=== PATIENT | male | born 1995 | race Caucasian/White ===

== ENCOUNTER 2016-11-17 15:53 | Emergency (ER) | payer SELFPAY ==
[2016-11-17] MEDS ORDERED: ONDANSETRON HCL 4 MG/2 ML VIAL ONE (16:13)
[2016-11-17 16:22] LABS: BASOPHILS 0.1 % (0.0-2.0); EOSINOPHILS 0.1 % (0.0-6.0); HEMOGLOBIN 13.9 g/dL (14.0-18.0); LYMPHOCYTES 14.7 % (20.0-40.0); LYMPHOCYTES# 1.7 X 10^3uL (0.8-3.8); MEAN CORPUS. HGB CONCENTRATION 34.7 g/dL (32.0-36.0); MEAN CORPUSCULAR HEMOGLOBIN 31.2 pg (29.0-35.0); MEAN PLATELET VOLUME 9.9 fL (7.4-10.4); MONOCYTES# 0.8 X 10^3uL (0.2-1.0); NEUTROPHILS 78.1 % (54.0-75.0); NEUTROPHILS# 8.8 X 10^3uL (2.6-6.7); PLATELET COUNT 171 X 10^3uL (130-440); RED BLOOD COUNT 4.45 X 10^6uL (4.20-6.10); RED CELL DISTRIBUTION WIDTH 12.3 % (11.5-14.5); WHITE BLOOD COUNT 11.3 X 10^3uL (3.9-10.7)
[2016-11-17 16:27] LABS: BLOOD UREA NITROGEN 16 mg/dL (9-20); CALCIUM 9.8 mg/dL (8.4-10.2); CHLORIDE 97 mmol/L (98-107); EST GLOMERULAR FILTRATION RATE > 60 mL/min; GLUCOSE 124 mg/dL (70-100); POTASSIUM 3.2 mmol/L (3.5-5.1); SODIUM 138 mmol/L (137-145)
[2016-11-17 16:30] LABS: ETHYL ALCOHOL < 10 mg/dL (<10)
--- NOTE | 2016-11-17 19:12 | ER NURSING DOCUMENTATION ---
Nurse's Notes [facility] Name:Yony Wells Age:21 yrs Sex:Male :1995 Arrival Date:11/17/2016 Time:15:53 Bed4 Private MD: Diagnosis:Heroin Abuse Presentation: 11/17 16:01 Presenting complaint: Patient states: pt states he feels fine. EMS states: EMS was st called for a pt who had nausea and passed out on the trail. pt states he has had injected heroin and smoked some THC about 5 hours ago. pt was d/angelia from a rehab facility yesterday. Transition of care: Other RMNP. 16:01 Acuity: IQRA 3 st 16:01 Method Of Arrival: EMS: 410 st 16:13 Care prior to arrival: IV initiated. Medication(s) given: Zofran. st Triage Assessment: 16:06 General: Appears drowsy but can carry on a normal conversation. . Behavior is st cooperative. General: pt has no complaints. . Pain: Denies pain. Cardiovascular: tachy. Rhythm is sinus tachycardia. Respiratory: Airway is patent Respiratory effort is even, unlabored, Respiratory pattern is regular, symmetrical, shallow and slow when sleeping. GI: Reports nausea, not curently. Historical: - Allergies: Focalin; - Home Meds: 1. None - PMHx: ADHD; - PSHx: None; - Tetanus: < 10 years. - Ebola Screening: : Patient denies exposure to infectious person. Patient denies travel to an Ebola-affected area in the 21 days before illness onset. . - Immunization history: Pneumococcal vaccine status is unknown. - Social history: Smoking status: Patient uses tobacco products, current every day smoker. Patient uses IV drugs, heroin, marijuana Patient/guardian denies using alcohol. Screenin:08 Infectious Disease Risk Other: pt denies any. Abuse screen: pt states he feels safe at home. Nutritional screening: No deficits noted. Assessment: 16:21 General: rangers at bedside talking to pt . st 17:05 General: pt is awake and talking to his friends. . st Vital Signs: 16:07 BP 126 / 91; Pulse 109; Resp 14; Temp 98.3; Pulse Ox 74% on R/A; Pain 0/10; st 16:25 Pulse 97 MON; Resp 15; Pulse Ox 100% 4 lpm ; st 16:36 BP 132 / 74 (auto/); st 16:40 Pulse 81 MON; Resp 8; Pulse Ox 97% 2 lpm ; st 17:00 BP 133 / 75 (auto/); st 17:05 Pulse 89 MON; Resp 12; Pulse Ox 97% ; st 17:11 Pulse Ox 84% on R/A; st 17:30 BP 119 / 69 (auto/); st 17:35 Pulse 87 MON; Resp 18; Pulse Ox 96% ; st 17:40 Pulse 82 MON; Resp 18; Pulse Ox 93% on 1 lpm NC; st 17:58 Pulse Ox 78% on R/A; st 18:00 BP 106 / 70 (auto/); st 18:05 Pulse 78 MON; Resp 19; Pulse Ox 100% on 1 lpm NC; st 18:30 BP 119 / 72 (auto/); st 18:35 Pulse 75 MON; Resp 17; Pulse Ox 94% on R/A; st 18:41 Pulse Ox 96% on R/A; st 19:10 Pulse Ox 97% on R/A; mk2 ED Course: 15:54 Patient arrived in ED. jt 16:01 summer, RN is Primary Nurse. st 16:[address] 16:09 Valuables Remains with patient Patient has correct armband on for positive st identification. Bed in low position. Call light in reach. Side rails up X2. pt with in sight of RN station. bus monitor on. Pulse ox on. NIBP on. Cardiac Monitoring On for Nurse Monitoring only. Pulse Ox - RN Monitoring Only NIBP On - RN Monitoring Only. 16:11 Oxygen Oxygen administration via nasal cannula @ 4L/min. st 16:21 Diaz Vela MD is Attending Physician. tl1 16:53 Oxygen Oxygen administration via nasal cannula @ 2L/min. st 17:05 Oxygen Oxygen administration via nasal cannula room air trial. st 17:11 Oxygen Oxygen administration via nasal cannula @ 1L/min. st 17:40 Oxygen Oxygen administration via nasal cannula room air trial. st 17:57 Oxygen Oxygen administration via nasal cannula @ 1L/min. st 18:20 Oxygen Oxygen administration via nasal cannula room air trial. st Administered Medications: No medications were administered Outcome: 18:41 IV D/Angelia st 18:57 Discharge ordered by . tl1 19:10 Discharged to home ambulatory. mk2 19:10 Condition: good 19:10 Discharge instructions given to patient, Instructed on discharge instructions, follow up and referral plans. 19:11 Patient left the ED. mk2 11/18 08:31 Discharge F/U Call: Unable to reach: no answer st Signatures: Trinidad Macias RN RN Mildred Lane RN RN patel2 Diaz Vela MD MD tl1 Kaylee Licea
--- NOTE | 2016-11-17 19:12 | ER PHYSICIAN DOCUMENTATION ---
Physician Documentation [facility] Name:Yony Wells Age:21 yrs Sex:Male :1995 Arrival Date:11/17/2016 Time:15:53 Bed4 Private MD: Diaz Salmeron Disposition: 11/17 19:15 Chart complete. tl1 Disposition: 11/17/16 18:57 Discharged to Home/Self Care. Impression: Heroin Abuse. - Condition is Good. - Discharge Instructions: DRUG ABUSE, General, HEROIN ABUSE - OPIATE ABUSE. - Medical Reconciliation form form. - Follow up: Private Physician; When: 2 - 3 days; Reason: Recheck today's complaints, Continuance of care. - Problem is new. - Symptoms have improved. - Notes: AVOID ILLEGAL DRUGS. GET BACK INTO A REHAB/SUPPORT GROUP [facility]. HPI: 15:55 This 21 yrs old Male presents to ER via EMS with complaints of Possible tl1 Overdose. 11/18 20:05 He finished a 42 day heroin rehab program in [place] about 5 days ago and went to a [facility] sober living house. 2 days ago he was expelled for using heroin again, and since then has been using cocaine, heroin and marijuana. This morning he was up in [facility] hiking with friend and had a syncopal episode, apparently after using heroin. Medics were summoned and on there arrival he was drowsy, but breathing OK, protecting his ariway, with good O2 saturations on supplemental oxygenand respiratory rate, and Narcan was withheld and he was transferred here for further evaluation. On arrival here he had no complaints.. Historical: - Allergies: Focalin; - Home Meds: 1. None - PMHx: ADHD; - PSHx: None; - Tetanus: < 10 years. - Ebola Screening: : Patient denies exposure to infectious person. Patient denies travel to an Ebola-affected area in the 21 days before illness onset. . - Immunization history: Pneumococcal vaccine status is unknown. - Social history: Smoking status: Patient uses tobacco products, current every day smoker. Patient uses IV drugs, heroin, marijuana Patient/guardian denies using alcohol. ROS: 11/17 16:10 Constitutional: Positive for fatigue, malaise, poor PO intake, Negative for body aches, tl1 chills, fever. Cardiovascular: Negative for chest pain, edema, orthopnea, palpitations. Respiratory: Negative for cough, dyspnea on exertion, hemoptysis, pleurisy, shortness of breath, sputum production, wheezing. Abdomen/GI: Negative for abdominal pain, nausea, vomiting, diarrhea. Neuro: Negative for altered mental status, dizziness, headache, seizure activity, speech changes, syncope, near syncope, weakness. All other systems are negative. Exam: 16:10 Constitutional: The patient appears in no acute distress, alert, awake, comfortable, tl1 non-toxic, well developed, well hydrated, well nourished. 16:10 Head/face: Exam is negative for acute changes. 16:10 Eyes: Pupils: equal, round, and reactive to light and accomodation, right pupil is approximately 3 mm(s), left pupil is approximately 3 mm(s). 16:10 ENT: Exam is negative for acute changes. 16:10 Neck: ROM/movement: is normal, Lymph nodes: no appreciated lymphadenopathy. 16:10 Chest/axilla: Inspection: normal, Palpation: is normal, tenderness, is not appreciated. 16:10 Cardiovascular: Rate: normal, Rhythm: regular, Heart sounds: normal, Edema: is not appreciated. 16:10 Respiratory: Respirations: normal, Breath sounds: are normal, no rales, rhonchi, no stridor, no wheezing. 16:10 Abdomen/GI: Inspection: abdomen appears normal, Bowel sounds: diminished, Palpation: abdomen is soft and non-tender. 16:10 Musculoskeletal/extremity: Exam is negative for acute changes. 16:10 Musculoskeletal/extremity: Exam is negative for acute changes, he does have some old track samuels in the left antecubital area.. 16:10 Skin: Exam negative for acute changes. 16:10 Neuro: Orientation: is normal, Mentation: is normal, appropriate for stated age, Memory: is normal, Cranial nerves: grossly normal, Motor: moves all fours, Gait: is steady, at a normal pace, without difficulty, appropriate for age. 16:10 Psych: Behavior/mood is pleasant, cooperative, Affect is flat, Oriented to person, place, time, Patient has no thoughts/intents to harm self or others. Judgement / Insight is normal. Memory is normal. Delusions/hallucinations are not present. Vital Signs: 16:07 BP 126 / 91; Pulse 109; Resp 14; Temp 98.3; Pulse Ox 74% on R/A; Pain 0/10; st 16:25 Pulse 97 MON; Resp 15; Pulse Ox 100% 4 lpm ; st 16:36 BP 132 / 74 (auto/); st 16:40 Pulse 81 MON; Resp 8; Pulse Ox 97% 2 lpm ; st 17:00 BP 133 / 75 (auto/); st 17:05 Pulse 89 MON; Resp 12; Pulse Ox 97% ; st 17:11 Pulse Ox 84% on R/A; st 17:30 BP 119 / 69 (auto/); st 17:35 Pulse 87 MON; Resp 18; Pulse Ox 96% ; st 17:40 Pulse 82 MON; Resp 18; Pulse Ox 93% on 1 lpm NC; st 17:58 Pulse Ox 78% on R/A; st 18:00 BP 106 / 70 (auto/); st 18:05 Pulse 78 MON; Resp 19; Pulse Ox 100% on 1 lpm NC; st 18:30 BP 119 / 72 (auto/); st 18:35 Pulse 75 MON; Resp 17; Pulse Ox 94% on R/A; st 18:41 Pulse Ox 96% on R/A; st 19:10 Pulse Ox 97% on R/A; mk2 MDM: 16:10 Differential diagnosis: polypharmacy, heroin/other recreational drug use. Data tl1 reviewed: vital signs, nurses notes, lab test result(s), and as a result, I will discharge patient. Data interpreted: computer systems manager: Pulse oximetry:. Counseling: I had a detailed discussion with the patient and/or guardian regarding: the historical points, exam findings, and any diagnostic results supporting the discharge/admit diagnosis, lab results, the need for outpatient follow up, ongoing drug rehab, to return to the emergency department if symptoms worsen or persist or if there are any questions or concerns that arise at home. Response to treatment: the patient's symptoms have markedly improved after treatment, and as a result, I will discharge patient. ED course: He was observed until he was maintaining normal oxygen satruation on room air and a normal level of alertness. He was discharged in the care of 2 of his sober friends.. 16:21 Patient medically screened. tl1 11/17 16:26 Order name: CBC AUTO DIF, MDIF/RMOR IF IND; Complete Time: 18:08 EDMS 11/17 18:07 Interpretation: WHITE BLOOD COUNT 11.3; HEMOGLOBIN 13.9; HEMATOCRIT 40.0; PLATELET tl1 COUNT 171; NEUTROPHILS 78.1; LYMPHOCYTES 14.7. 11/17 16:30 Order name: BASIC METABOLIC PANEL; Complete Time: 18:08 EDMS 11/17 18:07 Interpretation: SODIUM 138; POTASSIUM 3.2; CHLORIDE 97; CARBON DIOXIDE 26; GLUCOSE 124; tl1 BLOOD UREA NITROGEN 16; CREATININE 0.9; CALCIUM 9.8. 11/17 16:30 Order name: ETHYL ALCOHOL; Complete Time: 18:08 EDMS 11/17 18:07 Interpretation: Normal: ETHYL ALCOHOL < 10. tl1 11/17 16:39 Order name: URINE DRUG SCREEN, QUAL; Complete Time: 18:08 EDMS 11/17 18:08 Interpretation: COCAINE PRESUMPTIVE POS; THC PRESUMPTIVE POS; OPIATE PRESUMPTIVE POS. tl1 11/17 16:10 Order name: Oxygen; Complete Time: 16:11/17 16:10 Order name: Cardiac Monitoring - Continuous; Complete Time: 16:11/17 16:10 Order name: Pulse Ox Continuous; Complete Time: 16:13 st Dispensed Medications: No medications were administered Signatures: Trinidad Macias RN RN st Kruger, Meg, RN RN mk2 Leigh, Tom, MD MD tl1
== END 2016-11-17 19:12 | disposition home or self-care (01) ==
LOC: ER 15:53 → EEVIPCON 15:53 → ER 19:12
DX: F11.120 Opioid abuse with intoxication, uncomplicated (principal); R53.81 Other malaise; R53.83 Other fatigue; F14.10 Cocaine abuse, uncomplicated; F12.10 Cannabis abuse, uncomplicated; Z99.89 Dependence on other enabling machines and devices; Z99.81 Dependence on supplemental oxygen; Z74.3 Need for continuous supervision
CPT/HCPCS: 80048; 80305; 80320; 85025; 99284; A0425; A0427; J2405